=== PATIENT | male | born 2000 | race Caucasian/White ===

== ENCOUNTER 2020-01-17 12:33 | Emergency (ER) | payer SELFPAY ==
[2020-01-17 12:39] VITALS: BP 146/91; PULSE 73; TEMP 98.4; BMI 27.1
--- NOTE | 2020-01-17 13:34 | PDOC ---
History of Present Illness - General Chief Complaint: Injury Stated Complaint: LFT FOOT INJURY Time Seen by Provider: 01/17/20 12:45 - History of Present Illness Initial Comments: 01/17/20 13:32 19-year-old male without comorbidities presents for evaluation of left ankle pain. He describes an inversion type injury which occurred while camping 3 days ago. Past History - Medical History Allergies/Adverse Reactions: Allergies Allergy/AdvReac Type Severity Reaction Status Date / Time No Known Allergies Allergy Verified 01/17/20 12:36 COPD: No - Immunization History Immunization Up to Date: Yes - Psycho-Social/Smoking History Smoking History: Never smoked - Substance Abuse Hx (Audit-C & DAST Scrn) How often the patient has a drink containing alcohol: Never Score: In Men: 4 or > Positive; In Women: 3 or > Positive: 0 Screen Result (Pos requires Nsg. Audit-10AR): Negative In the last yr the pt used illegal drug/Rx for NonMed reason: No Score: Yes response is considered Positive: 0 Screen Result (Positive result requires Nsg. DAST-10): Negative Review of Systems - Review of Systems Musculoskeletal: Yes: Joint Pain *Physical Exam - Vital Signs Last Vital Signs Temp Pulse Resp BP Pulse Ox 98.4 F 73 20 146/91 100 01/17/20 12:36 01/17/20 12:36 01/17/20 12:36 01/17/20 12:36 01/17/20 12:36 - Physical Exam 01/17/20 13:32 Left Ankle skin color and temperature normal; There is some ecchymosis about the anterior lateral aspect of the left ankle range of motion is slightly limited. There is no tenderness about the proximal fibula or along its distal course. No tenderness about the medial lateral malleolus base of the fifth metatarsal or navicular. Mild tenderness over the ATFL without instability no gross sensorimotor deficits neurovascular intact. ED Treatment Course - RADIOLOGY Radiology Studies Ordered: Category Date Time Status ANKLE-LEFT [RAD] Stat Radiology 01/17/20 13:17 Taken Medical Decision Making - Medical Decision Making 01/17/20 13:32 X-rays of the left ankle show no evidence of fracture trauma or destructive process. Weight-bear as tolerated with Aircast and crutches for left ankle sprain. Follow-up with orthopedic surgery I have reviewed the pathophysiology with the patient. They are in agreement with the treatment plan all questions were answered to their satisfaction. Understanding for follow-up without fail was also conveyed to the patient. Again they are in agreement. Discharge - Discharge Information Problems reviewed: Yes Clinical Impression/Diagnosis: Left ankle sprain Condition: Stable Disposition: HOME - Admission No - Follow up/Referral Referrals: Farshad Reyez MD [Primary Care Provider] - Mikey Dunbar DO [Staff Physician] - - Patient Discharge Instructions Additional Instructions: You may weight-bear as tolerated with use of crutches in the Aircast Tylenol as directed for pain. Return to the emergency room for worsening symptoms. And wi thout fail please follow-up with orthopedic surgery in 1 to 2 days for further evaluation and treatment options. - Post Discharge Activity
== END 2020-01-17 13:40 | disposition home or self-care (01) ==
LOC: JERFT 12:33
DX: S93.402A Sprain of unspecified ligament of left ankle, initial encounter (principal)
CPT/HCPCS: 73610-TC-LT-FY; 99283-25